=== PATIENT | female | born 2000 | race Two or more races ===

== ENCOUNTER 2024-06-05 11:15 | Emergency (ER) | payer OTHER ==
[~2024-06-05] VITALS: Ht 165.1 cm; Wt 49.9 kg
[2024-06-05] MEDS ORDERED: MS CONTIN15 M1 (11:55)
[2024-06-05] MEDS ORDERED: CEFTRIAXONE SODIUM 2,000 MG VIAL IM STA (12:54)
== END 2024-06-05 13:10 | disposition home or self-care (01) ==
LOC: ER 11:18
DX: J06.9 Acute upper respiratory infection, unspecified (principal); Z88.8 Allergy status to other drugs, medicaments and biological substances